=== PATIENT | female | born 1990 | race Caucasian/White ===

== ENCOUNTER 2022-10-11 17:41 | Emergency (ER) | payer MEDICAID, SELFPAY ==
[2022-10-11 17:43] VITALS: BP 155/88; PULSE 121; RESP 19; TEMP 36.1; O2SAT 99; BMI 27.8
--- NOTE | 2022-10-11 18:40 | EX.ED.DYSGE1 ---
HPI <PAOLO Elder - Last Filed: 10/11/22 20:54> History of Present Illness Chief Complaint: Suicidal Narrative Narrative: Patient is a 31-year-old female with a long history of methamphetamine abuse, heroin abuse, schizophrenia, bipolar, manic depressive. Patient was recently in [facility] [place] [facility] for [facility] days and was clean at that time. She got released for 2 weeks and was at a treatment center, she signed herself out. She then relapsed using methamphetamine. Patient states she also smokes cigarettes, marijuana. Patient does inject her meth. Patient is tired of the way she is living her life, patient had a plan to overdose on heroin yesterday, however she was stopped by her friend. Patient then became more anxious, and was brought in by police. Patient states that she is hearing voices, she feels paranoid, she is also hearing voices telling her to hurt herself and to do bad things. Patient states that she cannot be safe alone. She would like to be admitted to the hospital for suicidal thoughts. Other than chronic pains to her arms, face from picking, she has no other issues. PFSH <PAOLO Elder - Last Filed: 10/11/22 20:54> [facility] Medical History (Updated 10/11/22 @ 20:54 by PAOLO Elder) Heroin abuse Methamphetamine abuse Home Medications NK 10/11/22 [History Last Taken Unknown] Allergy/AdvReac Type Severity Reaction Status Date / Time Penicillins Allergy Rash Verified 10/11/22 17:45 Family History no significant family his Surgical History no surgical history Social History Smoking Status: Current every day smoker tobacco type: cigarettes and e-cigarettes ROS <PAOLO Elder - Last Filed: 10/11/22 20:54> ROS ED ROS Narrative Constitutional: Negative for fever, chills, weight loss, weakness Eyes: Negative for vision loss, vision change, double vision ENT: Negative for any sore throat, ear pain, congestion Cardiovascular: Negative for any chest pain, tightness, palpitations Respiratory: Negative for any cough, sputum production, hemoptysis, dyspnea, dyspnea on exertion, orthopnea Gastrointestinal: Negative for any abdominal pain, nausea, vomiting, diarrhea, constipation, blood in stool, blood in vomit : Negative for any urinary frequency, dysuria, retention, blood in urine Muscle skeletal: Negative for any muscle joint pain, stiffness, myalgias, arthralgias, neck pain, back pain Neurological: Negative for any headache, syncope, numbness or tingling, dizziness Skin: Negative for any rashes, lumps, itching, abrasions, lacerations Psychiatric: Negative for any homicidal ideation. Positive for stress, suicidal ideation, anxiety, depression, paranoid, auditory hallucinations Hematologic: Negative for any easy bruising, excessive bruising, easy bleeding Allergies: Negative for any eczema, hives, rash EXAM <PAOLO Elder - Last Filed: 10/11/22 20:54> Physical Exam Narrative Exam Narrative: Vital signs reviewed. Patient is alert and orient x4. Patient is restless, she has multiple picking scars on her face, hands, arms, legs. HEET: Head normocephalic atraumatic, TMs clear bilaterally. Posterior pharynx is clear, moist mucous membranes. Nares clear bilaterally. Neck: Supple with no lymphadenopathy or tenderness. No signs of meningismus, negative jolt sign. Cardiac: Regular rate and rhythm no murmurs gallops or rubs, equal peripheral pulses bilaterally. Respiratory: Lungs clear to auscultation bilaterally. No chest tenderness. Abdomen: Soft, nontender, nondistended. No abdominal bruit or pulsatile masses. No hepatosplenomegaly Extremities: No peripheral edema, no signs of gross trauma or deformity. Active full range of motion of all extremities. Patient has multiple sites of redness, scabs from injection of drugs Neuro: Cranial nerves II through XII intact, no focal neurological deficits. Skin: Clean dry and intact with no rash, purpura, petechiae, vesicles or pustules. Backs/flank: No CVA tenderness, no midline spinal tenderness, no deformity. Psych: Negative for acute psychosis. Patient does have suicidal ideation, she does have a plan to overdose on heroin which she was planning on doing last night. She also was having auditory hallucinations telling her to hurt herself as well as do bad things Const Vital Signs: 10/11/22 17:43 10/11/22 20:55 Temperature 97 F L 97.8 F Temperature Source Temporal Temporal Pulse Rate 121 H 96 Respiratory Rate 19 H 18 Blood Pressure 155/88 H 153/93 H Blood Pressure Mean 110 113 Pulse Ox 99 98 Oxygen Delivery Method Room Air Room Air <Dr. Kevin Satnford DO - Last Filed: 10/11/22 22:53> Physical Exam Const Vital Signs: 10/11/22 17:43 10/11/22 20:55 Temperature 97 F L 97.8 F Temperature Source Temporal Temporal Pulse Rate 121 H 96 Respiratory Rate 19 H 18 Blood Pressure 155/88 H 153/93 H Blood Pressure Mean 110 113 Pulse Ox 99 98 Oxygen Delivery Method Room Air Room Air MDM <PAOLO Elder - Last Filed: 10/11/22 20:54> MDM Lab Data Labs: Laboratory Results - last 24 hr 10/11/22 10/11/22 10/11/22 18:48 18:48 18:48 WBC 4.6 RBC 4.35 Hgb 12.4 Hct 38.8 MCV 89.2 MCH 28.5 MCHC 32.0 RDW Std Deviation 45.1 H RDW Coeff of Porfirio 13.8 Plt Count 197 MPV 10.1 Immature Gran % (Auto) 0.200 Neut % (Auto) 50.3 Lymph % (Auto) 38.6 [place] % (Auto) 9.2 Eos % (Auto) 1.5 Baso % (Auto) 0.2 Absolute Neuts (auto) 2.3 Absolute Lymphs (auto) 1.76 Nucleated RBC % 0 Sodium 142 Potassium 3.9 Chloride 109 H Carbon Dioxide 26.0 Anion Gap 7 BUN 13 Creatinine 0.84 Estim Creat Clear Calc 99.55 Est GFR (MDRD) Af Amer 101 Est GFR (MDRD) Non-Af 83 BUN/Creatinine Ratio 15.6 Glucose 123 H Calcium 9.1 Urine Test Urine Opiates Screen Urine Methadone Screen Ur Barbiturates Screen Ur Phencyclidine Scrn Ur Amphetamines Screen MDMA (Ecstasy) Screen U Benzodiazepines Scrn Urine Cocaine Screen U Cannabinoids Screen Ur Drug Screen Comment Ethyl Alcohol < 3.0 10/11/22 10/11/22 20:10 20:10 WBC RBC Hgb Hct MCV MCH MCHC RDW Std Deviation RDW Coeff of Porfirio Plt Count MPV Immature Gran % (Auto) Neut % (Auto) Lymph % (Auto) [place] % (Auto) Eos % (Auto) Baso % (Auto) Absolute Neuts (auto) Absolute Lymphs (auto) Nucleated RBC % Sodium Potassium Chloride Carbon Dioxide Anion Gap BUN Creatinine Estim Creat Clear Calc Est GFR (MDRD) Af Amer Est GFR (MDRD) Non-Af BUN/Creatinine Ratio Glucose Calcium Urine Test Negative Urine Opiates Screen NEGATIVE Urine Methadone Screen NEGATIVE Ur Barbiturates Screen NEGATIVE Ur Phencyclidine Scrn NEGATIVE Ur Amphetamines Screen POSITIVE H MDMA (Ecstasy) Screen POSITIVE H U Benzodiazepines Scrn NEGATIVE Urine Cocaine Screen NEGATIVE U Cannabinoids Screen NEGATIVE Ur Drug Screen Comment Ethyl Alcohol Treatment and Re-Evaluation :: Patient was placed in suicide precautions. Patient is acting appropriate with staff. Patient presents the emergency department for suicidal ideation, auditory hallucinations. After my initial examination, I do believe the patient is a threat to herself. Patient was pink slipped. I did speak with social work who is here in the emergency department, they agree and will try to find the patient a place that can both treat psychiatric disease as well as drug abuse. Patient remained in suicide precautions. Patient remained stable, patient remains acting appropriate. Patient's laboratory studies show a normal CBC, patient's chemistries were unremarkable, patient's urine drug screen is not completed at this time, patient is not . Patient's alcohol level was negative. Patient COVID test was negative. Patient was working with a social service worker. Patient did have an accepting physician. The social work was able to get the patient into [facility]. Patient is still pink slipped, will be transferred via squad. She be diagnosed with suicidal ideation, methamphetamine abuse, auditory hallucinations. <Dr. Kevin Stanford, DO - Last Filed: 10/11/22 22:53> [facility] Narrative Medical decision making narrative: This patient was seen with a PA/[employer]ABILITY [employer] Individually assessed they patient including history and physical. I have reviewed everything on the chart that is available and agree with the documentation provided by the PA[employer] including discussion about the assessment, treatment plan, discussion, and return precautions. Patient presented today with suicidal ideations and auditory hallucinations. She was found to be a threat to herself and she was pink slipped. She was independently evaluated by the social service worker here today who agreed with this. Clearance lab work will be obtained and she will be medically cleared for inpatient psychiatric care. Patient was placed in suicide precautions. Patient is acting appropriate with staff. Patient presents the emergency department for suicidal ideation, auditory hallucinations. After my initial examination, I do believe the patient is a threat to herself. Patient was pink slipped. I did speak with social work who is here in the emergency department, they agree and will try to find the patient a place that can both treat psychiatric disease as well as drug abuse. Patient remained in suicide precautions. Patient remained stable, patient remains acting appropriate. Patient's laboratory studies show a normal CBC, patient's chemistries were unremarkable, patient's urine drug screen is not completed at this time, patient is not . Patient's alcohol level was negative. Patient COVID test was negative. Patient was working with a social service worker. Patient did have an accepting physician. The social work was able to get the patient into [facility]. Patient is still pink slipped, will be transferred via squad. She be diagnosed with suicidal ideation, methamphetamine abuse, auditory hallucinations. Lab Data Labs: Laboratory Results - last 24 hr 10/11/22 10/11/22 10/11/22 18:48 18:48 18:48 WBC 4.6 RBC 4.35 Hgb 12.4 Hct 38.8 MCV 89.2 MCH 28.5 MCHC 32.0 RDW Std Deviation 45.1 H RDW Coeff of Porfirio 13.8 Plt Count 197 MPV 10.1 Immature Gran % (Auto) 0.200 Neut % (Auto) 50.3 Lymph % (Auto) 38.6 [place] % (Auto) 9.2 Eos % (Auto) 1.5 Baso % (Auto) 0.2 Absolute Neuts (auto) 2.3 Absolute Lymphs (auto) 1.76 Nucleated RBC % 0 Sodium 142 Potassium 3.9 Chloride 109 H Carbon Dioxide 26.0 Anion Gap 7 BUN 13 Creatinine 0.84 Estim Creat Clear Calc 99.55 Est GFR (MDRD) Af Amer 101 Est GFR (MDRD) Non-Af 83 BUN/Creatinine Ratio 15.6 Glucose 123 H Calcium 9.1 Urine Test Urine Opiates Screen Urine Methadone Screen Ur Barbiturates Screen Ur Phencyclidine Scrn Ur Amphetamines Screen MDMA (Ecstasy) Screen U Benzodiazepines Scrn Urine Cocaine Screen U Cannabinoids Screen Ur Drug Screen Comment Ethyl Alcohol < 3.0 10/11/22 10/11/22 20:10 20:10 WBC RBC Hgb Hct MCV MCH MCHC RDW Std Deviation RDW Coeff of Porfirio Plt Count MPV Immature Gran % (Auto) Neut % (Auto) Lymph % (Auto) [place] % (Auto) Eos % (Auto) Baso % (Auto) Absolute Neuts (auto) Absolute Lymphs (auto) Nucleated RBC % Sodium Potassium Chloride Carbon Dioxide Anion Gap BUN Creatinine Estim Creat Clear Calc Est GFR (MDRD) Af Amer Est GFR (MDRD) Non-Af BUN/Creatinine Ratio Glucose Calcium Urine Test Negative Urine Opiates Screen NEGATIVE Urine Methadone Screen NEGATIVE Ur Barbiturates Screen NEGATIVE Ur Phencyclidine Scrn NEGATIVE Ur Amphetamines Screen POSITIVE H MDMA (Ecstasy) Screen POSITIVE H U Benzodiazepines Scrn NEGATIVE Urine Cocaine Screen NEGATIVE U Cannabinoids Screen NEGATIVE Ur Drug Screen Comment Ethyl Alcohol Discharge Plan Triage Chief Complaint: Suicidal ED Midlevel Provider: Akin Salas ED Provider: Kevin Stanford Dx/Rx/DC Orders Clinical Impression: Depression with suicidal ideation, Methamphetamine abuse, Auditory hallucination Prescriptions: No Action NK Primary Care Provider: Care Physician,No Primary Referrals: Care Physician,No Primary [Primary Care Provider] - Disposition Disposition: Psychiatric Hospital or Unit Discharge Location: [facility]
[2022-10-11 19:00] LABS: Absolute Lymphocyte Count 1.76 X10^3/uL (0.83-4.51); Absolute Neutrophil Count 2.3 X10^3/uL (2.0-7.7); Basophil# 0.01 X10^3/uL; Basophil% 0.2 % (0-1); Eosinophil# 0.07 X10^3/uL; Eosinophils% 1.5 % (0-5); Hematocrit 38.8 % (37-47); Hemoglobin 12.4 g/dL (12.0-15.0); Lymphocyte # 1.76 X10^3/ul (0.83-4.51); Lymphocyte % 38.6 % (19-41); Mean Corpuscular Hgb 28.5 pg (27.0-32.0); Mean Corpuscular Volume 89.2 fL (81-99); Mean Platelet Vol. 10.1 fl (6.2-12.0); Monocyte# 0.42 X10^3/uL; Monocyte% 9.2 % (0-10); NRBC Flagged by Analyzer 0 % (0-5); Neutrophil # 2.29 X10^3/uL (2.7-7.7); Neutrophil % 50.3 % (47-70); Platelet Count 197 K/mm3 (150-450); RBC Distribution Width CV 13.8 % (11.6-14.6); RBC Distribution Width SD 45.1 fl (35.1-43.9); Red Blood Count 4.35 M/mm3 (4.2-5.4); White Blood Count 4.6 K/mm3 (4.4-11.0)
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
[2022-10-11 19:12] LABS: Anion Gap 7 (5-15); BUN 13 mg/dL (7-18); BUN/Creat Ratio 15.6 RATIO (10-20); Calcium,Total 9.1 mg/dL (8.5-10.1); Chloride 109 mmol/L (98-107); Creatinine, Serum 0.84 mg/dL (0.55-1.02); EST Glomerular Filtration Rate 83 mL/min (>60); Est Glom Filt Rate - Afr Amer 101 mL/min (>60); Estimated Creatinine Clearance 99.55 ml/min; Glucose 123 mg/dL (74-106); Potassium 3.9 mmol/L (3.5-5.1); Sodium Level 142 mmol/L (136-145)
[2022-10-11 19:44] LABS: Alcohol, Blood (Medical)-Serum < 3.0 mg/dL
--- NOTE | 2022-10-11 19:49 | CM.ED ---
Addendum entered by Mireya Gomez 10/11/22 21:57: TANIA was contacted by [facility] admissions staff with accepting information for patient: [facility], [address], [address] [phone]. Dahlia requesting copy of pink slip and test. TANIA updated CERTIFIED HISTOLOGIC TECHNICIAN Akin and RN with accepting. pathology secretary coordinated transportation with ETA 10:30p. TANIA faxed pink slip and updated labs including test to [facility]. TANIA updated patient regarding acceptance to [facility]. Patient was tearful and reports not wanting to go to [facility]. SW explained most facilities aren't close to [place] and would be the same if not further away. Patient inquired about [facility], SW explained their facility typically only accepts direct admits from [facility]. SW attempted to provide patient with emotional support and encouragement. Patient repeating she doesn't want to go to [facility] because it's too far from family. SW validated patient's emotions and provided ETA, no other needs voiced. Plan: [facility]. KEVYN Gutiérrez Original Note: TANIA Note TANIA contacted [facility] to inquire about bed availability, no answer. TANIA attempted to call three times with no answer. TANIA contacted [facility] to inquire about bed availability, SW informed beds are available. TANIA contacted [facility], admissions staff completed verbal referral and requested referral via fax. TANIA faxed referrals to [facility] and [facility]. Plan: inpatient psych pending acceptance from facility KEVYN Gutiérrez
[2022-10-11 20:39] LABS: Internal QC Validated? YES +Cl - CLEAR BKGD; Pregnancy, Urine Negative Negative
[2022-10-11 20:55] VITALS: BP 153/93; PULSE 96; RESP 18; TEMP 36.6; O2SAT 98
[2022-10-11 21:02] LABS: Amphetamine Urine VISTA POSITIVE (<1000 ng/mL); Barbiturate Urine VISTA NEGATIVE (< 200 ng/mL); Benzodiazepine Urine VISTA NEGATIVE (< 200 ng/mL); Cocaine Urine VISTA NEGATIVE (< 300 ng/mL); Ecstacy Urine VISTA POSITIVE (< 500 ng/mL); Methadone Urine VISTA NEGATIVE (< 300 ng/mL); PCP Urine VISTA NEGATIVE (< 25 ng/mL); THC Urine VISTA NEGATIVE (< 50 ng/mL); Vista UDS pH Range 4
--- NOTE | 2022-10-11 21:03 | ED.RN ---
This nurse attempted to call report to [facility], [place]. This nurse talked with Lexie, who states that they do not have a bed for this patient at this time and she will call back for report when they assign a bed.
--- NOTE | 2022-10-11 21:44 | ED.RN ---
Report called to RN at [facility]
== END 2022-10-11 23:43 ==
PROVIDERS: Nurse Practitioner; Emergency Provider Student in an Organized Health Care Education/Training Program; Visit Provider Student in an Organized Health Care Education/Training Program
DX: R45.851 Suicidal ideations (principal); F15.10 Other stimulant abuse, uncomplicated; F11.10 Opioid abuse, uncomplicated; F32.A Depression, unspecified; Z20.822 Contact with and (suspected) exposure to COVID-19; F17.210 Nicotine dependence, cigarettes, uncomplicated; F17.290 Nicotine dependence, other tobacco product, uncomplicated; R44.0 Auditory hallucinations
CPT/HCPCS: 36415; 80048; 80307; 81025; 82077; 85025; 87811; 99283

== ENCOUNTER 2022-11-16 20:53 | Emergency (ER) | payer MEDICAID, SELFPAY ==
[2022-11-16 20:54] VITALS: BP 128/102; PULSE 102; RESP 22; TEMP 36.9; BMI 27.3
[2022-11-16] MEDS: OLANZapine 5 MG/TAB TAB.RAPDIS 10 MG PO (21:28)
[2022-11-16] MEDS: hydrOXYzine PAM 25 MG Capsule 50 MG PO (21:29)
--- NOTE | 2022-11-16 21:35 | ED.RN ---
Patient stated that she is hearing voices and to kill herself and me. She states that she doesn't want to kill anyone but the voices are telling her to.
[2022-11-16 22:22] LABS: Absolute Lymphocyte Count 1.85 X10^3/uL (0.83-4.51); Absolute Neutrophil Count 3.4 X10^3/uL (2.0-7.7); Basophil# 0.01 X10^3/uL; Basophil% 0.2 % (0-1); Eosinophil# 0.15 X10^3/uL; Eosinophils% 2.5 % (0-5); Hematocrit 39.3 % (37-47); Hemoglobin 12.8 g/dL (12.0-15.0); Lymphocyte # 1.85 X10^3/ul (0.83-4.51); Lymphocyte % 31.1 % (19-41); Mean Corp Hgb Conc 32.6 g/dL (32-36); Mean Corpuscular Hgb 28.2 pg (27.0-32.0); Mean Corpuscular Volume 86.6 fL (81-99); Mean Platelet Vol. 9.3 fl (6.2-12.0); Monocyte# 0.57 X10^3/uL; Monocyte% 9.6 % (0-10); NRBC Flagged by Analyzer 0 % (0-5); Neutrophil # 3.35 X10^3/uL (2.7-7.7); Neutrophil % 56.3 % (47-70); Platelet Count 268 K/mm3 (150-450); RBC Distribution Width CV 13.8 % (11.6-14.6); Red Blood Count 4.54 M/mm3 (4.2-5.4)
[2022-11-16 22:41] VITALS: BP 137/76; PULSE 90; RESP 22; O2SAT 98
[2022-11-16 22:43] LABS: Internal QC Validated? YES +Cl - CLEAR BKGD; Pregnancy, Serum, hCG Quali. NEGATIVE Negative
[2022-11-16 22:49] LABS: Alcohol, Blood (Medical)-Serum < 3.0 mg/dL; Anion Gap 6 (5-15); BUN 20 mg/dL (7-18); BUN/Creat Ratio 23.9 RATIO (10-20); Calcium,Total 8.5 mg/dL (8.5-10.1); Chloride 105 mmol/L (98-107); Creatinine, Serum 0.84 mg/dL (0.55-1.02); EST Glomerular Filtration Rate 83 mL/min (>60); Est Glom Filt Rate - Afr Amer 100 mL/min (>60); Estimated Creatinine Clearance 84.92 ml/min; Glucose 85 mg/dL (74-106); Potassium 3.8 mmol/L (3.5-5.1); Sodium Level 137 mmol/L (136-145)
[2022-11-16 22:49] LABS: Amphetamine Urine VISTA POSITIVE (<1000 ng/mL); Barbiturate Urine VISTA NEGATIVE (< 200 ng/mL); Benzodiazepine Urine VISTA NEGATIVE (< 200 ng/mL); Cocaine Urine VISTA NEGATIVE (< 300 ng/mL); Ecstacy Urine VISTA POSITIVE (< 500 ng/mL); Methadone Urine VISTA NEGATIVE (< 300 ng/mL); PCP Urine VISTA NEGATIVE (< 25 ng/mL); THC Urine VISTA NEGATIVE (< 50 ng/mL); Vista UDS pH Range 4
--- NOTE | 2022-11-17 00:06 | EDS_ITS ---
HPI HPI - Psych History of Present Illness Chief Complaint: Suicidal Informant: patient Onset/Context/Timing Onset: Days (4) Context: Gradual Onset Narrative Narrative: Patient presents suicidal, agitated, tearful, saying that she is hearing voices that are telling her to kill herself after discontinuing all of her mental health medications at least 4 days ago. She states she has attempted suicide a couple times in the last several days by trying to overdose on heroin, 2 days ago when she did this her mother found her unconscious and awakened her with Narcan. Denies any recent physical injury or illness. [facility] Medical History (Updated 11/17/22 @ 00:[address] Harry Alvarado MD) Bipolar 1 disorder Heroin abuse Methamphetamine abuse Schizophrenia Home Medications citalopram 20 mg tablet (Celexa) mg 11/16/22 [History Last Taken Unknown] hydroxyzine pamoate 50 mg capsule (Vistaril) mg 11/16/22 [History Last Taken Unknown] quetiapine 50 mg tablet (Seroquel) 50 mg PO QHS 11/16/22 [History Last Taken Unknown] trazodone 50 mg tablet mg 11/16/22 [History Last Taken Unknown] Allergy/AdvReac Type Severity Reaction Status Date / Time Penicillins Allergy Rash Verified 10/11/22 17:45 Social History (Updated 11/17/22 @ 00:[address] Harry Alvarado MD) Smoking Status: Current every day smoker tobacco type: cigarettes and e- cigarettes substance use type: heroin, IV drugs and methamphetamine ROS ROS ED Constitutional Constitutional ED: Denies chills or fever(s) Eyes Eyes: Denies change in vision or diplopia ENT ENT ED: Denies rhinorrhea or sore throat Cardiovascular Cardiovascular: Denies chest pain or palpitations Respiratory/Chest Respiratory/Chest: Denies cough or dyspnea Gastrointestinal Gastrointestinal: Denies abdominal pain, diarrhea, nausea or vomiting Genitourinary Genitourinary ED: Denies dysuria or hematuria Musculoskeletal Musculoskeletal: Denies back pain or neck pain Integumentary Denies abscess or rash Neurologic Neurologic: Denies headache(s), paresthesias or weakness Psychiatric Psychiatric: Reports anxiety, auditory hallucinations, depression, suicidal ideation and suicidal thoughts; Denies homicidal ideation EXAM Physical Exam Const Vital Signs: 11/16/22 20:54 04/07/23 22:41 Temperature 98.4 F Temperature Source Temporal Pulse Rate 102 H 90 Respiratory Rate 22 H 22 H Blood Pressure 128/102 H 137/76 H Blood Pressure Mean 110 96 Pulse Ox 98 Oxygen Delivery Method Room Air Positive well nourished and well developed General Appearance ED: well developed and NAD HEENT Reports moist mucous membranes normocephalic and atraumatic Eyes PERRL and EOMs intact bilaterally General Eye ED: Negative for scleral icterus Neck no lymphadenopathy and supple Resp normal respiratory effort and clear to auscultation bilaterally Cardio no murmurs Rate: regular rate Rhythm: regular rhythm GI non-tender and non-distended Auscultation: normoactive bowel sounds Palpation: soft Back/Spine no CVA tenderness and normal ROM Extremity normal to inspection General Extremety ED: Negative for edema General Extremity: Negative for edema Neuro oriented x3, CN's II-XII intact bilaterally, no sensory deficits noted and gait normal Sensorium / Orientation: alert Motor Exam: strength 5/5 throughout Psych denies homicidal ideation Activity / Motor Behavior: psychomotor agitation Mood & Affect: depressed and anxious Thought Content: suicidality and hallucination(s) Positive for auditory (Command, telling her to hurt herself, patient actively responding to these auditory hallucinations) Insight: poor Judgement: poor Skin Skin Narrative: Multiple IV drug use sites on both forearms and both lower legs, nothing more than mildly tender, some ecchymotic, some subcutaneous nodules, but no palpable cords and no abscesses or signs of infection. Rashes: no rashes MDM MDM MDM Narrative Medical decision making narrative: Labs and EKG unremarkable, toxicology noted. Patient was given Zyprexa Zydis in addition to her Vistaril for her symptoms. This did help. A sitter sat with her. She is high risk for suicide, and will be evaluated by crisis for placement to psychiatric hospital. She is medically cleared. Lab Data Attestation: I reviewed the patient's lab results. Labs: Laboratory Results - last 24 hr 11/16/22 11/16/22 11/16/22 21:25 22:10 22:10 WBC 6.0 RBC 4.54 Hgb 12.8 Hct 39.3 MCV 86.6 MCH 28.2 MCHC 32.6 RDW Std Deviation 43.0 RDW Coeff of Porfirio 13.8 Plt Count 268 MPV 9.3 Immature Gran % (Auto) 0.300 Neut % (Auto) 56.3 Lymph % (Auto) 31.1 Will % (Auto) 9.6 Eos % (Auto) 2.5 Baso % (Auto) 0.2 Absolute Neuts (auto) 3.4 Absolute Lymphs (auto) 1.85 Nucleated RBC % 0 Sodium 137 Potassium 3.8 Chloride 105 Carbon Dioxide 26.0 Anion Gap 6 BUN 20 H Creatinine 0.84 Estim Creat Clear Calc 84.92 Est GFR (MDRD) Af Amer 100 Est GFR (MDRD) Non-Af 83 BUN/Creatinine Ratio 23.9 H Glucose 85 Calcium 8.5 Serum , Qual Urine Opiates Screen NEGATIVE Urine Methadone Screen NEGATIVE Ur Barbiturates Screen NEGATIVE Ur Phencyclidine Scrn NEGATIVE Ur Amphetamines Screen POSITIVE H MDMA (Ecstasy) Screen POSITIVE H U Benzodiazepines Scrn NEGATIVE Urine Cocaine Screen NEGATIVE U Cannabinoids Screen NEGATIVE Ur Drug Screen Comment Ethyl Alcohol 11/16/22 11/16/22 22:10 22:10 WBC RBC Hgb Hct MCV MCH MCHC RDW Std Deviation RDW Coeff of Porfirio Plt Count MPV Immature Gran % (Auto) Neut % (Auto) Lymph % (Auto) Will % (Auto) Eos % (Auto) Baso % (Auto) Absolute Neuts (auto) Absolute Lymphs (auto) Nucleated RBC % Sodium Potassium Chloride Carbon Dioxide Anion Gap BUN Creatinine Estim Creat Clear Calc Est GFR (MDRD) Af Amer Est GFR (MDRD) Non-Af BUN/Creatinine Ratio Glucose Calcium Serum , Qual NEGATIVE Urine Opiates Screen Urine Methadone Screen Ur Barbiturates Screen Ur Phencyclidine Scrn Ur Amphetamines Screen MDMA (Ecstasy) Screen U Benzodiazepines Scrn Urine Cocaine Screen U Cannabinoids Screen Ur Drug Screen Comment Ethyl Alcohol < 3.0 Rhythm Strip Rhythm Strip: Sinus Rhythm Rate: 85 Ectopy: None EKG Initial EKG: Attestation: I personally reviewed and interpreted this EKG as follows: Interpretation: Sinus Rhythm and No Acute Injury Pattern Comments: Normal EKG Discharge Plan Triage Chief Complaint: Suicidal ED Provider: Harry Alvarado Dx/Rx/DC Orders Clinical Impression: Acute psychosis, Suicide attempt by heroin overdose, Suicidal ideation, Schizophrenia Prescriptions: No Action trazodone 50 mg tablet Label Comments: 50 mg Oral at Bedtime as needed hydroxyzine pamoate [Vistaril] 50 mg capsule Label Comments: 50 mg Oral Three Times A Day as needed citalopram [Celexa] 20 mg Tablet quetiapine [Seroquel] 50 mg Tablet 50 mg PO QHS Primary Care Provider: Care Physician,No Primary Referrals: Care Physician,No Primary [Primary Care Provider] - Disposition Disposition: Psychiatric Hospital or Unit
--- NOTE | 2022-11-17 01:29 | ED.RN ---
crisis here to see patient they are working on placement for patient at this time
[2022-11-17 02:00] VITALS: RESP 15
--- NOTE | 2022-11-17 02:14 | ED.RN ---
patient pending at [facility] at this time
--- NOTE | 2022-11-17 03:42 | ED.RN ---
PT ACCEPTED AT [facility], [facility] ETA [id number]
[2022-11-17 04:00] VITALS: RESP 15
--- NOTE | 2022-11-17 06:01 | ED.RN ---
attempted to call report to [facility]. nurse requested to call back after 7 am.
[2022-11-17 08:51] VITALS: BP 129/79; PULSE 84; RESP 16; TEMP 36.4; O2SAT 99
--- NOTE | 2022-11-17 10:05 | NURSING ---
CALLED [facility], ETA IS ANOTHER 10 MIN
--- NOTE | 2022-11-17 10:39 | NURSING ---
CALLED [facility], ETA IS ON SCENE
== END 2022-11-17 10:51 ==
PROVIDERS: Emergency Provider Emergency Medicine; Visit Provider Emergency Medicine
DX: F20.9 Schizophrenia, unspecified (principal); T40.1X4A Poisoning by heroin, undetermined, initial encounter; T14.91XA Suicide attempt, initial encounter; F31.9 Bipolar disorder, unspecified; F17.210 Nicotine dependence, cigarettes, uncomplicated
CPT/HCPCS: 80048; 80307; 82077; 84703; 85025; 87811; 93005; 99285; J7030; A4216